=== PATIENT | male | born 2000 | race Caucasian/White ===

== ENCOUNTER 2021-03-06 17:28 | Emergency (ER) | payer OTHER ==
[2021-03-06 20:20] LABS: BASOPHIL 0.7 % (0-2); EOSINOPHIL 0.1 % (0-5); HCT 43.8 % (42.0-52.0); HGB 15.5 g/dl (13.2-18.0); LYMPHOCYTE 12.3 % (15-48); MCH 29.4 pg (25.0-31.0); MCHC 35.4 g/dL (32.0-36.0); MCV 83.1 fL (78.0-100.0); MONOCYTE 6.1 % (0-12); MPV 11.3 fL (6.0-9.5); NEUTROPHIL 80.5 % (41-80); NRBC 0; PLT 221 K/uL (150-400); RBC 5.27 M/uL (4.70-6.00); RDW 12.7 % (11.5-14.0); WBC 9.1 K/uL (4.0-10.5)
[2021-03-06 20:40] LABS: ALBUMIN 5.1 g/dL (3.4-5.0); BILIRUBIN - TOTAL 0.8 mg/dL (0.2-1.0); BUN/CREAT RATIO (CALC) 19.4 RATIO; CREATININE 0.67 mg/dL (0.67-1.17); GLOBULIN (CALCULATION) 3.1 g/dL; POTASSIUM 3.4 mmol/L (3.5-5.1); TOTAL PROTEIN 8.2 g/dL (6.4-8.2)
== END 2021-03-06 21:40 | disposition home or self-care (01) ==
LOC: FER 17:28
PROVIDERS: Emergency Medicine
DX: R07.89 Other chest pain (principal); R06.02 Shortness of breath; Z87.891 Personal history of nicotine dependence
CPT/HCPCS: 36415; 71045; 80053; 84443; 84484; 85025; 85379; 93005